=== PATIENT | male | born 1965 | race African-American/Black ===

== ENCOUNTER 2018-12-27 06:20 | Day surgery (SDC) | payer MEDICARE, OTHER ==
[2018-12-27] VITALS (11 sets, daily range): BP systolic 91–129; BP diastolic 50–75
[~2018-12-27] VITALS: Ht 180.3 cm; Wt 117.9 kg
[~2018-12-27 06:20] MED LIST: Acetaminophen (Non formulary) 100 ML IV ONE; BYSTOLIC10 MG ORAL; Descovy PO; ISENTRESS400 MG ORAL; ceFAZolin 1gm IVPB IVPB ONE; celeBREX 200mg Cap **SURGERY PATIENTS ONLY ORAL ONE; oxyCONTIN 20mg tab ORAL ONE
--- NOTE | 2018-12-27 06:56 | Pre-Procedure Note/Attestation ---
Pre-Procedure Note/Attestation Complete Prior to Procedure Planned Procedure: right Procedure Narrative: rt knee scope, resection of loose fragment Indications for Procedure Pre-Operative Diagnosis: rt knee loose fragment Attestation I attest that I discussed the nature of the procedure; its benefits; risks and complications; and alternatives (and the risks and benefits of such alternatives ), prior to the procedure, with the patient (or the patient's legal customer engagement representative). I attest that, if there was a reasonable possibility of needing a blood transfusion, the patient (or the patient's legal customer engagement representative) was given the [facility] standardized written summary, pursuant to the Rich Harriett Blood Safety Act ([place] Health and Safety Code # 1645, as amended). I attest that I re-evaluated the patient just prior to the surgery and that there has been no change in the patient's H&P, except as documented below:NONE Connor Carpenter MD Dec 27, 2018 06:56
[2018-12-27] MEDS ORDERED: Tylenol #3 tab (300mg/30mg) ORAL PRN (07:00)
[2018-12-27] MEDS ORDERED: HYDROmorphone 1mg/ml Carpuject SUBQ PRN (07:00)
[2018-12-27] MEDS ORDERED: D5 1/2NS 1,000 ML IV SCH (07:00)
[2018-12-27] MEDS ORDERED: HYDROcodone/Acetamin 5/325 tab ORAL PRN ×2 (07:00→08:00)
--- NOTE | 2018-12-27 07:07 | NUR ---
iv was started by tao couch r.n. at 0700 am
[2018-12-27] MEDS ORDERED: FLUTICASONE PRO16 G1 NASAL (07:10)
[2018-12-27] MEDS ORDERED: LR 1000ml 1,000 ML IVLG SCH (07:46)
--- NOTE | 2018-12-27 07:51 | Anethesia Preoperative Eval ---
Anesthesia Pre-op PMH/ROS General Date of Evaluation: Dec 27, 2018 Time of Evaluation: 08:16 Anesthesiologist: Karina ASA Score: ASA 3 Mallampati Score Class I : Soft palate, uvula, fauces, pillars visible Class II: Soft palate, uvula, fauces visible Class III: Soft palate, base of uvula visible Class IV: Only hard plate visible Mallampati Classification: Class III Surgeon: Jayden Diagnosis: R Knee Pain Surgical Procedure: R Knee Arthroscopy Anesthesia History: none Family History: no anesthesia problems Allergies: Coded Allergies: No Known Allergies (Unverified , 12/26/18) Medications: see eMAR Patient NPO?: Yes Past Medical History Cardiovascular: Reports: HTN Gastrointestinal/Genitourinary: Reports: GERD, other - Anal Polylps Endocrine: Reports: other - Gynocomastia Hematology/Immune: Reports: other - HIV Other: obesity - BMI 38 PSxH Narrative: Anal Polypectomy Anesthesia Pre-op Phys. Exam Physician Exam Last Vital Signs Date Time Temp Pulse Resp B/P (MAP) Pulse Ox O2 Delivery O2 Flow Rate FiO2 12/27/18 07:04 Room Air 12/27/18 06:58 97.9 70 18 117/75 97 Constitutional: NAD Neurologic: CN 2-12 intact Cardiovascular: RRR Respiratory: CTA Gastrointestinal: S/NT/ND Airway Exam Mallampati Score: Class III MO: limited ROM: limited Teeth: missing, intact Anesthesia Pre-op A/P Risk Assessment & Plan Assessment: ASA 3 Plan: GA Status Change Before Surgery: No Pre-Antibiotics Dru Grams Ancef IV Given Within 1 Hr of Incision: Yes Time Given: 08:31 Juice Collins MD Dec 27, 2018 07:51
[2018-12-27] MEDS ORDERED: Propofol 200mg/20ml IV ONE (08:00)
[2018-12-27] MEDS ORDERED: LR 1000ml ONE (08:00)
[2018-12-27] MEDS ORDERED: NS Irrig 2000ml IRRIG ONE (08:00)
[2018-12-27] MEDS ORDERED: oxyCODONE HCL/Acetaminophen 5/325mg ORAL PRN (08:00)
[2018-12-27] MEDS ORDERED: Atropine Sulfate 0.4mg/ml inj IVP PRN (08:00)
[2018-12-27] MEDS ORDERED: DiphenhydrAMINE 50mg/ml Inj IVP PRN (08:00)
[2018-12-27] MEDS ORDERED: fentaNYL 100 mcg/2 mL IV PRN (08:00)
[2018-12-27] MEDS ORDERED: Ketorolac 30mg Inj IV PRN ×2 (08:00)
[2018-12-27] MEDS ORDERED: LORazepam Inj 2mg/ml 1ml IV PRN (08:00)
[2018-12-27] MEDS ORDERED: Midazolam 2mg/2ml Inj IVP PRN (08:00)
[2018-12-27] MEDS ORDERED: Metoclopramide 10mg/2ml Inj IVP PRN (08:00)
[2018-12-27] MEDS ORDERED: Meperidine 50mg/ml Inj(FOR RIGORS ONLY) IVP PRN (08:00)
[2018-12-27] MEDS ORDERED: Labetalol 5mg/ml 20ml vial IV PRN (08:00)
[2018-12-27] MEDS ORDERED: HYDROcodone/Acetamin 7.5/325 tab ORAL PRN (08:00)
[2018-12-27] MEDS ORDERED: Acetaminophen (Non formulary) 100 ML IV ONE (08:00)
[2018-12-27] MEDS ORDERED: Hydromorphone 0.5mg/0.5ml inj IVP PRN (08:00)
[2018-12-27] MEDS ORDERED: fentaNYL 100 mcg/2 mL IV ONE (08:18)
[2018-12-27] MEDS ORDERED: Lidocaine 1% MPF 10mg/ml 5ml ONE (08:21)
[2018-12-27] MEDS ORDERED: Dexamethasone 4mg/ml vial ONE (08:21)
[2018-12-27] MEDS ORDERED: Sodium Chloride 10ml vial INJ ONE (08:21)
[2018-12-27] MEDS ORDERED: Ropivacaine 5mg/ml Vial 30ml INJ ONE (08:36)
[2018-12-27] MEDS ORDERED: ePHEDrine 50mg/ml Inj ONE (08:41)
--- NOTE | 2018-12-27 08:55 | Immediate Post-Op Evaluation ---
Immediate Post-Op Evalulation Immediate Post-Op Evalulation Procedure: R Knee Arthroscopy Date of Evaluation: Dec 27, 2018 Time of Evaluation: 09:47 IV Fluids: 800 LR Blood Products: 0 Estimated Blood Loss: 25 Urinary Output: 0 Blood Pressure Systolic: 91 Blood Pressure Diastolic: 55 Pulse Rate: 61 Respiratory Rate: 16 O2 Sat by Pulse Oximetry: 97 Temperature (Fahrenheit): 97.2 Pain Score (1-10): 2 Nausea: No Vomiting: No Complications 0 Patient Status: awake, reacts, patent, none Hydration Status: adequate Dru Grams Ancef IV Given Within 1 Hr of Incision: Yes Time Given: 08:31 Juice Collins MD Dec 27, 2018 08:55
--- NOTE | 2018-12-27 08:55 | 48 Hour Post Anesthesia Eval ---
Post Anesthesia Evaluation Procedure: R Knee Arthroscopy Date of Evaluation: Dec 27, 2018 Time of Evaluation: 11:52 Blood Pressure Systolic: 121 0: 78 Pulse Rate: 62 Respiratory Rate: 18 Temperature (Fahrenheit): 98 O2 Sat by Pulse Oximetry: 99 Airway: patent Nausea: No Vomiting: No Pain Intensity: 2 Hydration Status: adequate Cardiopulmonary Status: Stable Mental Status/LOC: patient returned to baseline Follow-up Care/Observations: 0 Post-Anesthesia Complications: 0 Follow-up care needed: ready to discharge Juice Collins MD Dec 27, 2018 08:55
--- NOTE | 2018-12-27 09:19 | Brief Operative Note ---
Immediate Post Operative Note Operative Note Chief Complaint: rt knee pain Pre-op Diagnosis: rt knee loose fragment Procedure: rt knee scope, resection of loose fragments lateral meniscectomy Post-op Diagnosis: same as pre-op Findings: consistent w/pre-op dx studies Surgeon: ganjianpour. ryder [employer] Architect: melanie dickerson Anesthesiologist: md marjorie Anesthesia: general Specimen: yes Complications: none Condition: stable Fluids: ns Estimated Blood Loss: minimal Drains: none Implant(s) used?: No Connor Carpenter MD Dec 27, 2018 09:19
--- NOTE | 2018-12-27 11:45 | Operative Note - Dictated ---
DATE OF OPERATION: 12/27/2018 PREOPERATIVE DIAGNOSES: Right knee multiple loose fragments causing irritation and swelling and possible lateral meniscus tear. POSTOPERATIVE DIAGNOSES: 1. Right knee multiple loose fragments measuring 5 mm to 1 cm where at least 15 to 18 loose fragments noted. 2. Right knee large tear of the body and anterior horn lateral meniscus with a vertical tear that extended all the way to the meniscocapsular junction the anterior horn from body. 3. 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 4. 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 PROCEDURE: 1. Right knee arthroscopy and extensive intra-articular shaving. 2. Right knee medial as well as lateral compartment chondroplasty. 3. Right knee partial lateral meniscectomy involving anterior horn, body, and lateral meniscus involving 30% lateral meniscus. 4. Right knee resection of the multiple loose fragments measuring 5 to 10 mm, a total of 15 to 18 that were removed with the shaver and graspers. SURGEON: Connor Carpenter M.D. HIGH SCHOOL ASSISTANT PRINCIPAL: Sierra Leger PA-C. Snowboarder was present during the actual operative portion of the case and was important and essential part of the operation. During the operation, the phlebotomy lab assistant held and operated the arthroscopic camera for visualization, assisted by manipulating the leg to help with visualization, and helped with essential parts of the repair process as necessary such as operating surgical instruments under surgeon supervision, suture management, and wound closures. ANESTHESIOLOGIST: Juice Collins M.D. ANESTHESIA: General LMA anesthesia. TOURNIQUET TIME: 35 minutes. ESTIMATED BLOOD LOSS: Less than 20 mL. COMPLICATIONS: None. SURGICAL INDICATION: The patient is a 53-year-old male, who sustained the above injury to his knee. The patient was treated non-operative initially, but this did not alleviate the patients symptoms. Therefore, after discussing all non-surgical and surgical options, and discussing all foreseeable risk and benefits of surgery, the patient opted for surgical treatment as described above. PATIENT POSITIONING: The patient was brought to the operating room table and placed supine. All pressure points were well padded. General Anesthesia was induced and a well padded tourniquet was placed on the thigh. The lateral post was placed and positioned to allow for opening of the medial compartment of the knee without placing pressure over the fibular head. Patients entire leg was prepped and draped in the usual sterile fashion. Time out was performed and preop abx was given and after exsanguinating the lower extremity, the tourniquet was inflated to 275 mm of mercury. EXAMINATION OF THE KNEE UNDER ANESTHESIA: Before prepping and draping the knee and while the patient was relaxed under general anesthesia, the knee was examined for ROM, and anterior and posterior, medial and lateral, posterolateral, and posteromedial instability. Pivot shift testing was performed. There was no evidence of loss of motion or instability and the pivot shift testing was negative. PORTAL PLACEMENT: The lateral portal was placed with the knee flexed to 90 degrees at the level of inferior border of the patella in line with the lateral border of the patella. A cm skin incision was made with an eleven blade, and using a blunt obturator, the capsule was gently penetrated. Sterile saline solution was then infused inside the knee with the aid of a pump set at 35 mm mercury pressure. Under direct visualization, placement of the medial portal was preliminary judged using a spinal needle, and it was subsequently established using the same technique as the lateral portal. Care was given not to injure the cutaneous branches of the medial Saphenous nerve or the subcutaneous veins. DIAGNOSTIC ARTHROSCOPY: The suprapatellar patellar pouch was visualized. There were some small loose fragments are floating around the suprapatellar pouch measuring 5-6 mm. The medial and lateral patellar facets and trochlear groove articular cartilage was visualized. These structures were intact and were devoid of any articular cartilage damage. The medial plica shelf and the corresponding medial femoral condyle articular cartilage were visualized. There was no significantly thickening of the medial plica shelf and there were no kissing? lesion over the medial femoral condyle. The lateral gutter and the posterolateral corner of the knee were visualized. There were multiple loose fragments in the lateral compartment and in the lateral gutter and around the popliteus tendon. At this point, the knee was placed in the figure of four position and the lateral compartment was entered. The lateral femoral condyle, lateral tibial plateau, and the anterior, body, and the posterior horn of the lateral meniscus were visualized and probed. There was some grade 3 chondromalacia of the medial femoral condyle. There was a complex tear in the body and anterior horn of the lateral meniscus that extended all the way to the front. The tear had the anterior horn from the body of the lateral meniscus. The knee was then placed at 90 degree and the ACL and PCL were visualized and probed. The ACL was completely intact on visualization and probing, and it had excellent tension. The PCL was completely intact on visualization and probing and it had excellent tension. The medial compartment was then entered and the medial femoral condyle, medial tibial plateau, and the anterior, body, and the posterior horn of the medial meniscus were visualized and probed. There was grade 3 chondromalacia in the medial femoral condyle. The medial meniscus was completely intact both on its undersurface and on the top. The medial gutter was visualized. There were some multiple loose fragments in the medial gutter. There was also loose fragment that could be visualized just anterior to ACL measuring 1 cm. The scope was then brought back to the patella femoral compartment. OPERATIVE ARTHROSCOPY: At this point, all loose debris and fragments were removed with the use of suction motorized shaver. Specific attention was given to assure all visible loose fragments were irrigated out of the knee joint with pump inflow and cannula outflow system. For removal of loose body, the loose fragments were identified and visualized. Using combination of the shaver, suction, and graspers, these loose fragments were removed. These loose fragments measured approximately 5-8 mm. All debris left behind was removed with combination of rachael and graspers. For lateral meniscectomy, at this point, attention was given to the lateral meniscus. Using combination of baskets and rachael, the torn portion of the lateral meniscus was removed. Attention was given to remove all displaced and unstable portion of the lateral meniscus while maintaining as much of the functional portion of the meniscus as possible. Approximately, 30% of the anterior horn and body of the meniscus was removed in this fashion. The transition between the meniscectomy portion and intact portion of the meniscus was smoothed out with combination of small baskets and rahcael. Excellent transition zone was obtained in this fashion. For lateral compartment chondroplasty, care was given to the area of cartilage damage in the lateral compartment. The frayed and loose fragments of articular cartilage were debrided using a motorized shaver. Suction was used to pull in the loose fragments and flaps of the cartilage and to minimize damage to the intact and well attached portion of the cartilage. This allowed for smooth surfaces for the articular cartilage. For medial compartment chondroplasty, care was given to the area of cartilage damage in the medial compartment. The frayed and loose fragments of articular cartilage were debrided using a motorized shaver. Suction was used to pull in the loose fragments and flaps of the cartilage and to minimize damage to the intact and well attached portion of the cartilage. This allowed for smooth surfaces for the articular cartilage. CONDITION AT DISCHARGE FROM OPERATING ROOM: The knee was irrigated with copious amount of normal saline at the end of the procedure. The scope was removed and the water was drained. The skin edges were re-approximated and sterile dressing was applied. All lap count and instrument counts were correct. Patient tolerated the procedure well without complications and was taken to the recovery room in stable conditions. Connor Carpenter M.D. DR: BENJIE JOB#: [id number] CC:
== END 2018-12-27 11:40 | disposition home or self-care (01) ==
LOC: SUR 06:20 → EDBD 11:00 → SUR 11:40
DX: M23.41 Loose body in knee, right knee (principal); S83.281A Other tear of lateral meniscus, current injury, right knee, initial encounter; M94.261 Chondromalacia, right knee; B20 Human immunodeficiency virus [HIV] disease; G62.9 Polyneuropathy, unspecified; I10 Essential (primary) hypertension; K21.9 Gastro-esophageal reflux disease without esophagitis; E66.9 Obesity, unspecified; Z68.36 Body mass index [BMI] 36.0-36.9, adult; X58.XXXA Exposure to other specified factors, initial encounter; Y92.9 Unspecified place or not applicable
CPT/HCPCS: 29880; J0690; J1100; J2250; J2405; J2704; J2795; J3010; 94003; 94150